=== PATIENT | female | born 1945 | race Caucasian/White ===

== ENCOUNTER 2024-02-20 11:41 | Emergency (ER) | payer OTHER, SELFPAY ==
[2024-02-20 11:43] VITALS: BP 135/86
--- NOTE | 2024-02-20 12:26 | ED.MUSCINJ ---
HPI-Injury
General
Chief Complaint: Musculo-Skeletal Complaint
Source: patient
Exam Limitations: none
Time Seen by Provider: 02/20/24 12:08
History of Present Illness-Injury
Initial Injury comments:
78-year-old female presents with 4 to 5 days worth of worsening right-sided and mid neck pain. Pain radiates top of the shoulder into the shoulder blade. She was seen at [facility]'s emergency room several days ago was prescribed Flexeril without
relief. Couple months ago she had similar pain she had a CT of her chest which was negative for blood clot. She is not currently anticoagulated. She denies headache double vision blurry vision nausea or vomiting. The pain is not pleuritic.
Hurts with motion. She cannot find a comfortable position. No other complaints at this time
Phy Exam
Physical Exam
Physical Exam:
General: Uncomfortable appearing female no acute respiratory distress
HEENT: Normocephalic atraumatic
Heart: Regular rate and rhythm no murmurs
Lungs: Clear no wheeze or rales
Musculoskeletal exam: Patient is slightly tender to the midline cervical spine and also to the right paraspinous area of the mid cervical spine. Range of motion is limited.
Neurologic: Alert good strength and sensation to the upper extremities
Vascular: 2+ radial pulse bilateral wrist
Injury Course
Orders/Labs/Results
Orders:
Orders
02/20/24 12:22
CT Cervical Spine W/o Iv Contr Urgent
Comment:
Reason For Exam: neck pain
Ketorolac [Toradol] 15 mg IV NOW STA
diazePAM [Valium Injection] 5 mg IV NOW STA
02/20/24 13:46
Dexamethasone Sod Phosphate [Decadron] 10 mg IV NOW STA
HYDROmorphone [Dilaudid] 0.5 mg IV NOW STA
MDM/Problems Addressed
Differential Diagnosis Includes:
Neck pain. Consider cervical strain versus radiculopathy versus degenerative disc disease. No fever to suggest infectious source. No red flags for cauda equina.
Will try to treat symptoms with Toradol and Valium. CT of the cervical spine pending
*Critical Care Note
Total Time (30-74mins, 75-104mins- exclusive of procedures): Not Applicable
Update Note
Update Note:
Patient reexamined feeling much better after treatment here. CT demonstrates multilevel degenerative disc disease worse at C5-C6. Suspect neck pain may be related to this there may be a component of radiculopathy as well in the C5-C6 area. Will
send home on steroid and muscle relaxer. She will follow-up with her family doctor.
ED Attending Note
-
Portions of this chart may have been created with voice recognition software.� Occasional wrong word or��sound alike� substitutions may have occurred due to the inherent limitations of voice recognition software.
Discharge Plan
Departure
Patient Disposition: Home (Routine Discharge)
Date of Disposition: 02/20/24
Time of Disposition: 15:25
Patient with high blood pressure during this ER visit?: No
Discharge Problem:
Neck pain
Instructions: Muscle and Bone Pain (DC)
Prescriptions:
New
prednisone 10 mg Tablet
See Rx Instructions .ROUTE .COMPLEX Qty: 30 0RF
Rx Instructions:
Take By Mouth:
40 mg daily x3 days, 30 mg daily x3 days,
20 mg daily x3 days, 10 mg daily x3 days.
diazepam [Valium] 5 mg tablet
5 mg PO BID PRN (Reason: muscle spasm) Qty: 10 0RF
Referrals:
Ruthann Posey DO [Family Provider] -
Activity Restrictions/Additional Instructions:
Continue with warm compresses to the neck. Take steroid as directed. Use Valium if needed for spasm. Continue to follow-up with your doctor for further evaluation
Interventions
Interventions:
*General Assessment Last Done: 02/20/24 11:43
*ED COVID-19 Vaccine History Last Done: 02/20/24 11:43
ED-Musculoskeletal Assessment Last Done: 02/20/24 14:18
Discharge Date and Time
Print Language: [place]
[2024-02-20] MEDS: VALIUM INJECTION 5 MG IV (12:32)
[2024-02-20] MEDS: TORADOL 15 MG IV (12:32)
[2024-02-20] MEDS: DILAUDID 0.5 MG IV (14:03)
[2024-02-20] MEDS: DECADRON 10 MG IV (14:04)
[2024-02-20 14:13] VITALS: BP 149/66
== END 2024-02-20 16:00 | disposition home or self-care (01) ==
LOC: EMR 11:41
PROVIDERS: EMERGENCY PHYSICIAN Emergency Medicine; FAMILY PHYSICIAN Family Medicine
DX: M54.2 Cervicalgia (principal)
CPT/HCPCS: 99284; 96374; 96375 ×3; 72125

== ENCOUNTER → 2024-02-25 17:19 | Outpatient (REF) | payer OTHER, SELFPAY | LOC: PAVMRI 17:19 | PROVIDERS: ATTENDING PHYSICIAN Physician Assistant Surgical; FAMILY PHYSICIAN Family Medicine | DX: M48.02 Spinal stenosis, cervical region (principal); M54.2 Cervicalgia | CPT/HCPCS: 72141 ==